=== PATIENT | female | born 1990 | race Caucasian/White ===

== ENCOUNTER 2018-01-23 03:43 | Emergency (ER) | payer SELFPAY ==
[2018-01-23] MEDS ORDERED: LIDOCAINE 1%/EPINEPHRINE INJ 20 ML VIAL INJ ONE (04:47)
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
[2018-01-23] MEDS ORDERED: CEPHALEXIN 500 MG CAPSULE PO ONE (06:19)
[2018-01-23 07:18] VITALS: BP 116/65
== END 2018-01-23 07:10 | disposition home or self-care (01) ==
LOC: ER 03:43
DX: S01.511A Laceration without foreign body of lip, initial encounter (principal); S01.81XA Laceration without foreign body of other part of head, initial encounter; X99.0XXA Assault by sharp glass, initial encounter; Y93.89 Activity, other specified; F11.10 Opioid abuse, uncomplicated
CPT/HCPCS: 99283; 12015; J3490